=== PATIENT | male | born 1940 | race Asian ===

== ENCOUNTER 2016-03-22 09:41 | Inpatient (IN) | payer MEDICARE ==
[~2016-03-22] VITALS: Ht 162.6 cm; Wt 74.0 kg
[2016-03-22] MEDS ORDERED: AMLO-512 PO (09:49)
[2016-03-22] MEDS ORDERED: ASPI-556 PO (09:49)
[2016-03-22] MEDS ORDERED: METF500T4 PO (09:49)
[2016-03-22] MEDS ORDERED: LOSA25TA21 PO (09:49)
[2016-03-22 09:56] LABS: GLUCOSE,POINT OF CARE 134 MG/DL (70-110)
[2016-03-22 10:26] LABS: BASOPHILS % (AUTO) 0.6 % (0.0-2.0); EOSINOPHILS % (AUTO) 6.1 % (1.0-6.0); HEMATOCRIT 39.9 % (41-53); HEMOGLOBIN 12.5 g/dL (13.5-17.5); LYMPHOCYTES # (AUTO) 3.1 K/uL (1.0-4.8); LYMPHOCYTES % (AUTO) 30.2 % (22.0-44.0); MEAN CORPUSCULAR HEMOGLOBIN 22.2 pg (26.0-34.0); MEAN CORPUSCULAR HGB CONC 31.2 G/dL (31.0-37.0); MEAN CORPUSCULAR VOLUME 71 fL (80-100); MONOCYTES # (AUTO) 0.9 K/uL (0.1-1.0); MONOCYTES % (AUTO) 9.2 % (2.0-9.0); NEUTROPHILS # (AUTO) 5.5 K/uL (1.8-7.7); NEUTROPHILS % (AUTO) 53.9 % (40.0-70.0); PLATELET COUNT (AUTO) 362 K/uL (150-450); RED CELL DISTRIBUTION WIDTH 14.3 % (11.5-14.5); WHITE BLOOD COUNT (AUTO) 10.2 K/uL (4.5-11.0)
[2016-03-22 10:31] LABS: RBC MORPHOLOGY COMMENT ABNORMAL RBC MORPH
[2016-03-22 10:37] LABS: ANION GAP 10 mmol/L (8-16); CALCIUM, TOTAL 9.5 mg/dL (8.8-10.5); CARBON DIOXIDE 26 mmol/L (22-29); CHLORIDE 103 mmol/L (98-107); CREATININE 1.99 mg/dL (0.60-1.30); GLOMERULAR FILTR. RATE CALC 33 mL/min (>60); POTASSIUM 4.6 mmol/L (3.5-5.1); SODIUM SERUM 139 mmol/L (136-145); UREA NITROGEN, BLOOD 31 mg/dL (7-18)
[2016-03-22 11:01] LABS: ALANINE AMINOTRANSFERASE 41 U/L (12-78); ALBUMIN 4.2 g/dL (3.4-5.0); ASPARTATE AMINOTRANSFERASE 18 U/L (15-37); BILIRUBIN,TOTAL 0.4 mg/dL (0.1-1.0); CREATINE KINASE MB 0.7 ng/mL (0-5); CREATINE KINASE, TOTAL 98 U/L (39-308); TOTAL PROTEIN, SERUM 8.5 g/dL (6.4-8.2)
[2016-03-22] MEDS ORDERED: NITROGLYCERIN 2% (1 GM=INCH) PACKET TP ONE (11:45)
[2016-03-22] MEDS ORDERED: ASPIRIN 325 MG EC TABLET PO ONE (11:45)
[2016-03-22] MEDS ORDERED: ACETAMINOPHEN 325 MG TABLET PO PRN ×2 (13:00→16:15)
[2016-03-22] MEDS ORDERED: 0.9% SODIUM CHLORIDE 10 ML SYRINGE IVP PRN (13:00)
[2016-03-22] MEDS ORDERED: ONDANSETRON HCL 4 MG/2 ML VIAL IVP PRN ×2 (13:00→16:00)
[2016-03-22 14:35] VITALS: BP 157/84
[2016-03-22 15:44] VITALS: BP 152/80
[2016-03-22] MEDS ORDERED: ZOLPIDEM TARTRATE 5 MG TABLET PO PRN (16:00)
[2016-03-22] MEDS ORDERED: MAGNESIUM HYDROXIDE SUSPENSION 30 ML UDCUP PO PRN (16:00)
[2016-03-22] MEDS ORDERED: BISACODYL 10 MG RECTAL RECTAL SUPPOSITORY PR PRN (16:00)
[2016-03-22] MEDS ORDERED: IPRATROPIUM BROMIDE 0.5 MG/2.5 ML NEB SOLUTION NEB PRN (16:00)
[2016-03-22] MEDS ORDERED: ALBUTEROL SULFATE 2.5 MG/0.5 ML NEB SOLUTION NEB PRN (16:00)
[2016-03-22] MEDS ORDERED: DEXTROSE 50%-WATER 25 GM/50 ML SYRINGE IVP PRN (16:15)
[2016-03-22] MEDS ORDERED: MORPHINE SULFATE 2 MG/ML SYRINGE IVP PRN (16:15)
[2016-03-22] MEDS ORDERED: PNEUMOCOCCAL VACCINE POLYVALENT 0.5 ML VIAL [PPSV23] IM ONE (16:30)
[2016-03-22] MEDS: HEPARIN SODIUM,PORCINE 5,000 UNITS/ML VIAL SQ SCH ×2 (17:47→23:30)
[2016-03-22] MEDS: NITROGLYCERIN 2% (1 GM=INCH) PACKET TP SCH ×2 (17:53→23:30)
[2016-03-22 20:18] VITALS: BP 107/82
[2016-03-22] MEDS: CARVEDILOL 6.25 MG TABLET PO SCH (20:39)
[2016-03-22] MEDS: INSULIN ASPART 100 UNITS/ML SQ PRN (20:59)
[2016-03-23] VITALS (7 sets, daily range): BP systolic 103–137; BP diastolic 56–78
[2016-03-23] MEDS: NITROGLYCERIN 2% (1 GM=INCH) PACKET TP SCH ×3 (05:28→17:19)
[2016-03-23 06:45] LABS: BASOPHILS % (AUTO) 0.8 % (0.0-2.0); EOSINOPHILS % (AUTO) 5.6 % (1.0-6.0); HEMOGLOBIN 11.7 g/dL (13.5-17.5); LYMPHOCYTES # (AUTO) 2.3 K/uL (1.0-4.8); LYMPHOCYTES % (AUTO) 20.9 % (22.0-44.0); MEAN CORPUSCULAR HEMOGLOBIN 22.6 pg (26.0-34.0); MEAN CORPUSCULAR HGB CONC 30.8 G/dL (31.0-37.0); MEAN CORPUSCULAR VOLUME 73 fL (80-100); MONOCYTES # (AUTO) 0.9 K/uL (0.1-1.0); MONOCYTES % (AUTO) 8.3 % (2.0-9.0); NEUTROPHILS # (AUTO) 7.1 K/uL (1.8-7.7); NEUTROPHILS % (AUTO) 64.4 % (40.0-70.0); PLATELET COUNT (AUTO) 324 K/uL (150-450); RED BLOOD CELL COUNT(AUTO) 5.18 MIL/uL (4.50-5.90); RED CELL DISTRIBUTION WIDTH 14.4 % (11.5-14.5)
[2016-03-23 07:11] LABS: HEMOGLOBIN A1C 6.6 % (4.5-6.2)
[2016-03-23 07:36] LABS: ALANINE AMINOTRANSFERASE 34 U/L (12-78); ALBUMIN 3.7 g/dL (3.4-5.0); ANION GAP 9 mmol/L (8-16); ASPARTATE AMINOTRANSFERASE 20 U/L (15-37); BILIRUBIN,TOTAL 0.4 mg/dL (0.1-1.0); CALCIUM, TOTAL 8.9 mg/dL (8.8-10.5); CARBON DIOXIDE 25 mmol/L (22-29); CHLORIDE 103 mmol/L (98-107); CHOL/HDL RATIO 3.7 (4.2-7.3); CREATINE KINASE MB 0.9 ng/mL (0-5); CREATINE KINASE, TOTAL 173 U/L (39-308); CREATININE 2.05 mg/dL (0.60-1.30); GLOMERULAR FILTR. RATE CALC 32 mL/min (>60); POTASSIUM 4.2 mmol/L (3.5-5.1); SODIUM SERUM 137 mmol/L (136-145); THYROID STIMULATING HORMONE 1.62 uIU/mL (0.36-3.74); TOTAL PROTEIN, SERUM 7.5 g/dL (6.4-8.2); UREA NITROGEN, BLOOD 34 mg/dL (7-18)
[2016-03-23 08:12] LABS: RBC MORPHOLOGY COMMENT ABNORMAL RBC MORPH
[2016-03-23] MEDS: LOSARTAN POTASSIUM 25 MG TABLET PO SCH (09:14)
[2016-03-23] MEDS: HEPARIN SODIUM,PORCINE 5,000 UNITS/ML VIAL SQ SCH ×2 (09:15→15:26)
[2016-03-23] MEDS: ASPIRIN 81 MG EC TABLET PO SCH (09:15)
[2016-03-23] MEDS: PANTOPRAZOLE SODIUM 40 MG DR TABLET PO SCH (09:15)
[2016-03-23] MEDS: CARVEDILOL 6.25 MG TABLET PO SCH ×2 (09:15→20:09)
[2016-03-23 09:26] LABS: VITAMIN B12 LEVEL 727 pg/mL (211-911)
[2016-03-23] MEDS: INSULIN ASPART 100 UNITS/ML SQ PRN ×2 (12:38→20:12)
[2016-03-23] MEDS: ACARBOSE 50 MG TABLET PO SCH (17:24)
[2016-03-24] MEDS: NITROGLYCERIN 2% (1 GM=INCH) PACKET TP SCH ×4 (00:34→17:08)
[2016-03-24] MEDS: HEPARIN SODIUM,PORCINE 5,000 UNITS/ML VIAL SQ SCH ×3 (00:34→17:08)
[2016-03-24 04:13] VITALS: BP 116/74
[2016-03-24 06:42] LABS: BASOPHILS % (AUTO) 0.7 % (0.0-2.0); EOSINOPHILS % (AUTO) 5.6 % (1.0-6.0); HEMATOCRIT 37.2 % (41-53); HEMOGLOBIN 11.5 g/dL (13.5-17.5); LYMPHOCYTES # (AUTO) 2.8 K/uL (1.0-4.8); LYMPHOCYTES % (AUTO) 25.7 % (22.0-44.0); MEAN CORPUSCULAR HEMOGLOBIN 22.5 pg (26.0-34.0); MEAN CORPUSCULAR HGB CONC 30.8 G/dL (31.0-37.0); MEAN CORPUSCULAR VOLUME 73 fL (80-100); NEUTROPHILS # (AUTO) 6.3 K/uL (1.8-7.7); PLATELET COUNT (AUTO) 312 K/uL (150-450); RED CELL DISTRIBUTION WIDTH 14.2 % (11.5-14.5); WHITE BLOOD COUNT (AUTO) 10.8 K/uL (4.5-11.0)
[2016-03-24 07:11] LABS: CALCIUM, TOTAL 8.7 mg/dL (8.8-10.5); CREATININE 2.11 mg/dL (0.60-1.30); MAGNESIUM 2.2 mg/dL (1.80-2.40); POTASSIUM 4.3 mmol/L (3.5-5.1)
[2016-03-24 07:55] VITALS: BP 126/72
[2016-03-24] MEDS: ACARBOSE 50 MG TABLET PO SCH ×3 (08:00→17:08)
[2016-03-24 08:25] LABS: RBC MORPHOLOGY COMMENT ABNORMAL RBC MORPH
[2016-03-24 09:15] VITALS: BP 148/87
[2016-03-24] MEDS ORDERED: DOBUTamine HCL/D5W 500 MG/250 ML IV BAG [STRESS LAB ONLY] IV ONE ×2 (11:30→18:19)
[2016-03-24] MEDS ORDERED: ATROPINE SULFATE 0.1 MG/ML 10 ML SYRINGE IVP ONE (11:38)
[2016-03-24 11:51] VITALS: BP 165/80
[2016-03-24 12:32] VITALS: BP 146/87
[2016-03-24] MEDS: LOSARTAN POTASSIUM 25 MG TABLET PO SCH (12:57)
[2016-03-24] MEDS: PANTOPRAZOLE SODIUM 40 MG DR TABLET PO SCH (12:57)
[2016-03-24] MEDS: ASPIRIN 81 MG EC TABLET PO SCH (12:58)
[2016-03-24] MEDS: CARVEDILOL 6.25 MG TABLET PO SCH (12:58)
[2016-03-24] MEDS ORDERED: CARV6 PO (15:03)
[2016-03-24] MEDS ORDERED: ATOR10TA84 PO (15:04)
[2016-03-24 16:48] VITALS: BP 125/74
[2016-03-24 17:56] LABS: GLUCOSE,POINT OF CARE 227 MG/DL (70-110)
[2016-03-24 18:12] LABS: GLUCOSE COMMENT 1 Received Meds; GLUCOSE,POINT OF CARE 159 MG/DL (70-110)
[2016-03-24 18:12] LABS: GLUCOSE,POINT OF CARE 108 MG/DL (70-110)
[2016-03-24 18:17] LABS: GLUCOSE,POINT OF CARE 158 MG/DL (70-110)
[2016-03-24 18:17] LABS: GLUCOSE COMMENT 1 Received Meds; GLUCOSE,POINT OF CARE 196 MG/DL (70-110)
[2016-03-24 18:17] LABS: GLUCOSE,POINT OF CARE 101 MG/DL (70-110)
[2016-03-24 18:17] LABS: GLUCOSE,POINT OF CARE 143 MG/DL (70-110)
[2016-03-24 18:17] LABS: GLUCOSE,POINT OF CARE 185 MG/DL (70-110)
[2016-03-24 18:17] LABS: GLUCOSE,POINT OF CARE 147 MG/DL (70-110)
[2016-03-24] MEDS ORDERED: ATROPINE SULFATE 0.4 MG/ML VIAL IM ONE (18:19)
[2016-03-30] MEDS ORDERED: ERGOCALCIFEROL (VIT D2) 50,000 UNITS CAPSULE PO SCH (09:00)
== END 2016-03-24 18:20 | disposition home or self-care (01) | DRG 313 ==
LOC: EMS 09:43 → 5N 13:45
PROVIDERS: ADMIT Internal Medicine Geriatric Medicine; ATTEND Internal Medicine Geriatric Medicine
PROC: 3E0234Z Introduction of Serum, Toxoid and Vaccine into Muscle, Percutaneous Approach (ICD-10-PCS; principal; 2016-03-22)
DX: R07.9 Chest pain, unspecified (principal); E11.22 Type 2 diabetes mellitus with diabetic chronic kidney disease; D64.9 Anemia, unspecified; I12.9 Hypertensive chronic kidney disease with stage 1 through stage 4 chronic kidney disease, or unspecified chronic kidney disease; N18.9 Chronic kidney disease, unspecified; N27.0 Small kidney, unilateral; Z79.82 Long term (current) use of aspirin; Z79.899 Other long term (current) drug therapy; Z90.49 Acquired absence of other specified parts of digestive tract; Z23 Encounter for immunization
CPT/HCPCS: 76770; 81050; 82306; 82575; 82607; 82746; 82962; 83036; 83735; 84100; 84156; 84439; 84443; 90471; 93005; 93017; 93306; 93350; 99285; J0461; J1250; J1644